=== PATIENT | female | born 1985 | race Caucasian/White ===

== ENCOUNTER → 2019-11-04 11:05 | Outpatient (CLI) | payer OTHER, SELFPAY ==
--- NOTE | ~2019-11-04 | US_ITS ---
EXAMINATION: US OB <=14 wk fetus w TV DATE: 11/04/2019 11:39 INDICATION: Gestational dating TECHNIQUE: Real-time transabdominal and transvaginal obstetric ultrasound. FINDINGS: No prior studies for comparison. The uterus measures 12.4 x 5.8 x 6.8 cm. There is an intrauterine gestational sac, with pole id entified. The crown rump length measures 2.5 cm, which correlates with a estimated gestational age o f 9 weeks 2 days. heart tones are identified measuring 171 BPM. Ovaries are not visualized. IMPRESSION: 1. SL IUP with an EGA of 9 weeks, 2 days (EDC by current ultrasound of 06/06/2020). Reviewed, dictated and finalized at location B. IMPRESSION: 1. SL IUP with an EGA of 9 weeks, 2 days (EDC by current ultrasound of ).
== END ==
PROVIDERS: Visit Provider Obstetrics & Gynecology
DX: Z34.91 Encounter for supervision of normal pregnancy, unspecified, first trimester (principal); Z3A.09 9 weeks gestation of pregnancy
CPT/HCPCS: 76801; 76817

== ENCOUNTER 2020-01-20 10:56 | Outpatient (CLI) | payer OTHER, SELFPAY ==
--- NOTE | ~2020-01-20 | US_ITS ---
EXAMINATION: US OB >= 14 weeks Fetus EXAM DATE: 01/20/2020 12:06 INDICATION: anatomy. 2nd trimester. TECHNIQUE: Pelvic obstetrical transabdominal sonogram was performed by a technologist. There are mu ltiple grayscale and Doppler images available for interpretation. Comparison is made to prior examina tion from 11/04/2019. FINDINGS: There is a single fetus identified in breech presentation with a heart rate of 131 beats pe r minute. The placenta is located in the anterior position. There is no sonographic evidence of retr oplacental hemorrhage identified. The amniotic fluid index is 12.4 centimeters, which is normal. BIOMETRIC DATA: Biparietal diameter (BPD): 4.7cm ----------------> 20 weeks 1 day. Head circumference (HC): 18.2 cm ----------------> 20 weeks 4 days. Abdominal circumference (AC): 16.2 cm ----------> 21 weeks 2 days. Femur length (FL): 3.3 cm --------------------------> 20 weeks 3 days. These measurements are concordant. HC/AC ratio is 1.13 (The 5th -- 95th percentile range is 1.07-1.25. Estimated weight is 380 g +/- 57 g. This is the 76th percentile when the currently reported cl inical gestation age 20 weeks 2 days, clinical estimated date of delivery (CHRISTA-OPE) 06/06 is used. Fet al estimated gestational age based on measurements from this exam is 20 weeks 4 days, with an estimat ed date of delivery (CHRISTA-AUA) 06/04. ANATOMIC SURVEY: The following anatomy is identified and is sonographically normal in appearance: Cerebral ventricles Cerebellum Cisterna magna Nuchal fold CTL-spine Four-chamber heart Diaphragm Stomach Kidneys Bladder Three-vessel cord Cord insertion IMPRESSION: 1. Single fetus in breech presentation with heart rate 131 beats per minute. 2. Estimated weight of 380 grams, 76 percentile using the currently reported clinical gestatio n age of 20 weeks 2 days, CHRISTA(OPE) 06/06. 3. Normal DON and anatomy survey. Reviewed, dictated and finalized at location A. COACH IMPRESSION: 1. Single fetus in breech presentation with heart rate 131 beats per minute. 2. Estimated weight of 380 grams, 76 percentile using the currently repo rted clinical gestation age of 20 weeks 2 days, CHRISTA(OPE) 06/06. 3. Normal DON and anatomy survey.
== END 2020-01-20 10:57 | disposition home or self-care (01) ==
PROVIDERS: Visit Provider Obstetrics & Gynecology
DX: Z34.92 Encounter for supervision of normal pregnancy, unspecified, second trimester (principal); Z3A.20 20 weeks gestation of pregnancy
CPT/HCPCS: 76805

== ENCOUNTER 2020-06-05 07:55 | Observation (INO) | payer OTHER, SELFPAY ==
--- NOTE | 2020-06-05 07:55 | OBADM ---
This patient, Micaela Mcneil, admitted to the OB room Labor/Delivery/Recovery 106 for observation. Patient/family oriented to hospital policies and general routines including ID bracelet, bed and alarms, visiting hours, pain management, procedures, bathroom and other care routines, personal items, smoking policy, room service/diet, and visiting hours. Patient/Family are encouraged to report perceived risks to care and to ask questions if they do not understand what they are told or what they should do.
[2020-06-05 08:30] VITALS: TEMP 36.3
[2020-06-05 08:45] VITALS: BP 117/68; PULSE 78
--- NOTE | 2020-06-11 09:58 | PM.OBTRLD ---
OB - Triage/Final Diagnosis Visit Information Comments/Additional reasons for admission: I have assessed the risk for this patient, Micaela Mcneil, and determined that she would benefit from observation care. Final Diagnosis (1) False labor: Code(s): O47.9 - False labor, unspecified Status: Acute
== END 2020-06-05 09:00 | disposition home or self-care (01) ==
PROVIDERS: Admitting Provider Obstetrics & Gynecology; PCP Family Medicine; Visit Provider Obstetrics & Gynecology
DX: O47.1 False labor at or after 37 completed weeks of gestation (principal); Z3A.39 39 weeks gestation of pregnancy
CPT/HCPCS: G0378; G0379

== ENCOUNTER 2020-06-08 05:02 | Inpatient (IN) | payer OTHER, SELFPAY ==
[2020-06-08] VITALS (67 sets, daily range): BP systolic 55–124; BP diastolic 40–81; PULSE 59–174; RESP 15–16; TEMP 36.3–36.8; O2SAT 98–100; BMI 32.3
[2020-06-08 05:42] LABS: Basophils Percent Auto 0.2 % (0.2-1.2); Eosinophils Absolute Auto 0.1 K/mm3 (0-0.3); Hematocrit 40.1 % (37.0-47.0); Hemoglobin 13.5 g/dL (12.0-15.0); Immature Granulocyte Absolute 0.05 K/mm3 (0.00-0.031); Immature Granulocyte Percent A 0.5 % (0-0.5); Lymphocytes Absolute Auto 2.32 K/mm3 (0.9-3.2); Lymphocytes Percent Auto 24.5 % (18.3-44.2); Mean Corpuscular HGB Conc 33.7 g/dl (32-36); Mean Corpuscular Hemoglobin 32.6 pg (26-34); Mean Corpuscular Volume 96.9 fl (80-100); Mean Platelet Volume 11.1 fl (7.4-10.4); Monocytes Absolute Auto 0.5 K/mm3 (0.1-0.6); Neutrophils Absolute Auto 6.5 K/mm3 (1.3-6.7); Neutrophils Percent Auto 68.8 % (45.5-73.1); Platelet Count Result 228 k/mm3 (150-375); Red Blood Count 4.14 M/mm3 (4.2-5.4); Red Cell Distribution Width 12.5 % (11.5-14.5); White Blood Count 9.5 K/mm3 (4.5-10.0)
--- NOTE | 2020-06-08 05:45 | LDADM ---
This patient, Micaela Mcneil, was admitted to Labor/Delivery/Recovery 102 on 06/08/20 at 05:02. Plans for labor, pain management and were discussed with patient. Patient/family oriented to hospital policies and general routines including ID bracelet, bed and alarms, visiting hours, pain management, procedures, bathroom and other care routines, personal items, smoking policy, room service/diet and guest tray routines, infant security routines, and visiting hours. Patient/Family are encouraged to report perceived risks to care and to ask questions if they do not understand what they are told or what they should do. See OBIX for further documentation.
--- NOTE | 2020-06-08 05:56 | WPDANESEPP ---
Anes - Eval Pre Procedure Procedure: labor epidural Date/Time: 06/08/20 05:56 Surgeon: yobani Pre Op Diagnosis: IOL Patient Data Age: 35 Gender: F Height: Weight: Last Vital Signs Pulse 97 06/08/20 05:45 BP 103/54 L 06/08/20 05:45 Allergies Allergy/AdvReac Type Severity Reaction Status Date / Time No Known Allergies Allergy Verified 06/04/20 08:44 Home Medications Medication Instructions Recorded Confirmed Type cetirizine 10 mg capsule 10 mg PO DAILY 10/21/19 05/07/20 History docosahexaenoic acid 200 mg capsule 200 mg PO DAILY 10/21/19 05/07/20 History Laboratory Tests 06/08/20 06/08/20 05:28 05:28 WBC 9.5 K/mm3 K/mm3 (4.5-10.0) RBC 4.14 M/mm3 L M/mm3 (4.2-5.4) Hgb 13.5 g/dL g/dL (12.0-15.0) Hct 40.1 % % (37.0-47.0) MCV 96.9 fl fl (80-100) MCH 32.6 pg pg (26-34) MCHC 33.7 g/dl g/dl (32-36) RDW 12.5 % % (11.5-14.5) Plt Count 228 k/mm3 k/mm3 (150-375) MPV 11.1 fl H fl (7.4-10.4) Immature Gran % (Auto) 0.5 % % (0-0.5) Neut % (Auto) 68.8 % % (45.5-73.1) Lymph % (Auto) 24.5 % % (18.3-44.2) [place] % (Auto) 5.0 % % (2.6-8.5) Eos % (Auto) 1.0 % % (0-4.4) Baso % (Auto) 0.2 % % (0.2-1.2) Lymph # (Auto) 2.32 K/mm3 K/mm3 (0.9-3.2) [place] # (Auto) 0.5 K/mm3 K/mm3 (0.1-0.6) Eos # (Auto) 0.1 K/mm3 K/mm3 (0-0.3) Baso # (Auto) 0.0 K/mm3 K/mm3 (0.0-0.1) Abs Immat Gran (auto) 0.05 K/mm3 H K/mm3 (0.00-0.031) Absolute Neuts (auto) 6.5 K/mm3 K/mm3 (1.3-6.7) Absolute Nucleated RBC 0.0 K/mm3 K/mm3 (0.0-0.012) Nucleated RBC % 0.0 % % (0.0-0.2) RPR Pending Patient hx anesthesia problems: none Family hx anesthesia problems: none PMFSH Past Medical History Medical History Vaginal delivery 10/21/18 Full term male 7lbs 12oz Family History Family History Sibling Family history of diabetes mellitus in first degree relative Mother Family history of diabetes mellitus in first degree relative Hypertension Hyperlipidemia Father Hypertension Social History Social History Smoking status: Never smoker Alcohol intake: never Substance use: never Gender identity (if verbalized by the patient): Female Spiritual care concerns: No Exam Day of Procedure 06/08/20 05:56
[2020-06-08] MEDS: LACTATED RINGERS 1,000 ML 125 ML IV CONT ×2 (06:15→09:50)
[2020-06-08] MEDS: OXYTOCIN 30 UNITS/NS 500 ML 30 UNITS/500 ML BAG IV CONT (06:15)
--- NOTE | 2020-06-08 08:11 | WPDOBADMIT ---
Obstetrics - Admit Note Admission Note: record reviewed. No pertinent additions to the history and/or any subsequent changes in the physical findings that are not consistent with the expected course of the were found. Additions to the history and/or subsequent changes in the physical findings follow. at 40+2 for induction of labor. Cervix 4/80/-1/soft/anterior. AROM with clear fluid. GBS negative. Continue pitocin. Anticipate ..
[2020-06-08] MEDS: ONDANSETRON INJ 4 MG/2 ML VIAL IV PUSH (09:50)
--- NOTE | 2020-06-08 12:12 | PM.OBPRVD ---
OB - Delivery Note Procedure Delivery date: 06/08/20 Procedure: events: Labor Induction Intrapartal events: None Induction method: per pitocin protocol Delivery augmentation: rupture of membranes Delivery monitor: external FHT and external uterine Route of delivery: Laceration Description: Perineal - 2nd Degree Delivery repair: vicryl (2-0) Specimen: No Quantitative Blood Loss (ml): 112 Anesthesia type: Epidural Disposition: floor Baby Date of : 06/08/20 Time of : 11:55 Weeks of gestation at delivery: 40 Infant gender: Female Weight (pounds): 7 Weight (ounces): 4 presentation: vertex position: Right Occiput Anterior Placenta delivery description: Spontaneous cord vessel description: 3 Vessels, True Knot, Loose and Clamped/Cut score one minute: 9 score five minutes: 9
[2020-06-08] MEDS: OXYTOCIN 30 UNITS/NS 500 ML 30 UNITS/500 ML BAG 125 UNITS IV CONT (12:46)
[2020-06-08 14:14] LABS: Rapid Plasma Reagin Non-Reactive (NonReactive)
[2020-06-08] MEDS: IBUPROFEN 600 MG TABLET PO ×2 (14:24→20:17)
--- NOTE | 2020-06-08 15:35 | PC.NURSE ---
1525-Patient transferred to post room #282 via wheelchair. Support person present. Oriented to unit, room, information board, rooming in, admission packet and security measures. Patient verbalizes understanding.
--- NOTE | 2020-06-08 15:56 | PC.NURSE ---
Consult with pt., mother reported eagerly latched and nursed for 20 minutes first feeding. Mother reports she was pleased, first child mother pumped for 2 months struggling with milk supply. Mother did not attempt first to breast due to inverted nipple. Nipples appear to be flat and will roll out nicely. Mother does not want the stress with supply as first child. Mother wishes to supplement if does not feed. Reviewed all options to assist with latching. Mother provided with Latch Assist, nipple shield and pump set up at bedside. attempted to breast, infant is gaging and spitting up clear mucus. sleepy and made no attempt to latch. Advised to skin to skin and attempt again in 15-30 minutes, calling out for assist.
[2020-06-09 04:40] VITALS: BP 100/51; PULSE 67; RESP 14; TEMP 36.7; O2SAT 99
[2020-06-09] MEDS: IBUPROFEN 600 MG TABLET PO (04:45)
[2020-06-09 05:31] LABS: Hemoglobin 11.8 g/dL (12.0-15.0)
--- NOTE | 2020-06-09 07:31 | WPDANLDPN2 ---
Anes-Prog Note L&D Date/Time: 06/09/20 07:31 Comfortable throughout: labor and delivery Neuraxial method: epidural Epidural/Spinal procedure site: clean & non-tender Neuro status: Neuro function grossly intact. Cardiovascular status: normal Respiratory status: normal Airway patency: baseline Mental status: baseline Post-Op hydration status: normal Vital Signs: Last Vital Signs Temp 36.7 C 06/09/20 04:40 Pulse 67 06/09/20 04:40 Resp 14 06/09/20 04:40 BP 100/51 L 06/09/20 04:40 Pulse Ox 99 06/09/20 04:40 Pain score (VAS): 2 I/O: Intake & Output 06/08/20 06/08/20 06/09/20 15:59 23:59 07:59 Intake Total 2500 Output Total 212 Balance 2288 Post-procedural complaints: none Patient feedback: Patient satisfied with anesthetic care.
--- NOTE | 2020-06-09 07:58 | PM.OBPNVD ---
OB - PN: Subj Subjective Date/time seen: 06/09/20 07:58 Patient comments: no complaints, pain well controlled and other (Lochia similar to menses) [place] baby status: doing well OB - PN: Obj Data Labs CBC & Chem 7: 06/09/20 04:52 Labs: Laboratory Results - last 24 hr 06/08/20 06/09/20 05:28 04:52 Hgb 11.8 L Hct 36.0 L RPR Non-reactive OB - PN A/P Plan day: 1 (s/p vaginal delivery, doing well) Plan: routine care Time Spent With Patient Time: Total time spent is greater than 50% in coordination of care (as documented) at patient's floor/unit and/or counseling patient: Exam Const: General: no acute distress GI: Inspection: other (Fundus firm and nontender at umbilicus) GI Palp: Yes Soft to palpation and No Tenderness to palpation present (GI) Extrem: General: no edema
--- NOTE | 2020-06-09 07:59 | PM.OBDSVD ---
DS: Admitting Diagnosis Admitting Diagnosis Admitting Diagnosis: Full term DS: Discharge Diagnosis Discharge Diagnosis (1) Vaginal delivery: Code(s): O80 - Encounter for full-term uncomplicated delivery Status: Acute OB - DS: Summary OB Procedures : None OB Procedures Intrapartum: Spontaneous Vag Delivery OB Procedures: : None Peripartum Data Infant Delivery Method: Natural Vaginal Laceration Description: Perineal - 2nd Degree complications: none Status at Discharge Functional status at discharge: independent ambulation Overall status at discharge: patient is progressing back to baseline Time Spent with Patient Time attestation: Total time spent providing and/or coordinating discharge services: Time spent: Less than 30 minutes DS: Data Data Completed and Pending Labs on day of discharge: Labs from last 24 hours 06/09/20 06/08/20 04:52 05:28 Hgb 11.8 L Hct 36.0 L RPR Non-reactive Discharge Plan Discharge Attending physician on discharge: Herlinda Van Discharging Clinician: Herlinda Van Anticipated Discharge Date/Time: 06/10/20 11:00 Patient Disposition: Home, Self-Care Activity: may shower and pelvic rest Diet: regular Patient Instructions: Antibiotic Form Stand Alone Forms: General Discharge Information Follow-up/Referrals: Herlinda Van MD [Physician] - 4 Weeks Discharge Medications: New ibuprofen 600 mg Tablet 600 mg PO Q6H PRN (Reason: Cramping) Qty: 60 RF: 0 Continued DHA 200 mg capsule 200 mg PO DAILY RF: 0 cetirizine 10 mg capsule 10 mg PO DAILY RF: 0 Date of admission: 06/08/20 05:02 Primary Care Provider: Luis Gu Admitting Provider: Herlinda Van Attending physician on admission: Herlinda Van Condition: Stable
[2020-06-09 08:00] VITALS: BP 100/60; PULSE 59; RESP 18; TEMP 36.2
[2020-06-09 19:10] VITALS: BP 107/64; PULSE 65; RESP 14; TEMP 36.4; O2SAT 100
--- NOTE | 2020-06-10 08:51 | PM.OBPNVD ---
OB - PN: Subj Subjective Date/time seen: 06/10/20 08:51 Patient comments: no complaints, pain well controlled and other (Lochia similar to menses) [place] baby status: doing well OB - PN: Obj Data Labs CBC & Chem 7: 06/09/20 04:52 OB - PN A/P Plan day: 2 (s/p vaginal delivery, doing well) Plan: routine care, discharge home and other (Follow up in office in 4 weeks) Time Spent With Patient Time: Total time spent is greater than 50% in coordination of care (as documented) at patient's floor/unit and/or counseling patient: Exam Const: General: no acute distress GI: Inspection: other (Fundus firm and nontender below umbilicus) GI Palp: Yes Soft to palpation and No Tenderness to palpation present (GI) Extrem: General: no edema
--- NOTE | 2020-06-10 09:00 | PC.NURSE ---
Patient instructed on viewing the discharge video Mother & Baby Care, The First Two Weeks . Patient was given the opportunity and encouraged to ask questions. Patient verbalized understanding of information shared and has been given the mother/baby guide for home reference.
[2020-06-10 09:30] VITALS: BP 110/72; PULSE 74; RESP 16; TEMP 36.7
[2020-06-11 08:43] VITALS: BP 115/63; PULSE 66; RESP 20; TEMP 36.7; O2SAT 100
== END 2020-06-10 11:41 | disposition home or self-care (01) | DRG 807 ==
LOC: ANHLDR 05:05 → ANHOB2 15:30
PROVIDERS: Admitting Provider Obstetrics & Gynecology; PCP Family Medicine; Visit Provider Obstetrics & Gynecology
DX: O69.2XX0 Labor and delivery complicated by other cord entanglement, with compression, not applicable or unspecified (principal); Z37.0 Single live birth; Z3A.40 40 weeks gestation of pregnancy; O70.1 Second degree perineal laceration during delivery
CPT/HCPCS: 36415; 85014; 85018; 85025; 86592; 86850; 86900; 86901; A9270; G0378; G0379; J2405; J2590; J7120

== ENCOUNTER 2020-08-03 21:07 | Observation (INO) | payer OTHER, SELFPAY ==
--- NOTE | ~2020-08-03 | CT_ITS ---
EXAMINATION: CT abdomen pelvis w con DATE: 08/03/2020 23:09 INDICATION: Right upper quadrant abdominal pain TECHNIQUE: Computed tomography (CT) of the abdomen and pelvis was performed with 100 cc Omnipaque 350 intravenous contrast. Automated exposure control and iterative reconstruction technique were employe d. Exam dose: 633.30 mGy-cm total exam DLP. COMPARISON: None. FINDINGS: There is minimal dependent atelectasis of the lower lobes. No infiltrate or consolidation i s noted in the included lower lung zones. Heart size is normal. No pericardial or pleural effusion. The gallbladder is present. No gallbladder wall thickening or pericholecystic fluid or fat stranding is evident. No bile duct or pancreatic duct dilatation. 6 mm hepatic cyst. The liver, spleen, pancreas, and adrenal glands and kidneys are otherwise unremark able. No urinary tract calculus or hydroureteronephrosis is evident. The urinary bladder appears unremarkable. The uterus measures approximately 8.8 cm height, up to 4.5 cm AP dimension, with some fluid in the en dometrial cavity. There is some focal soft tissue infiltration of the fat density adjacent to the cecum and apparent ap pendix with suggestion of appendiceal dilatation (10 mm), wall thickening and irregularity. Appendici tis is suggested. Clinical correlation is advised. No bowel obstruction or intraperitoneal free air is evident. Included skeletal structures are unremarkable. IMPRESSION: Suggestion of appendicitis with inflammation of the periappendiceal fat. Clinical correl ation is advised. [address] Mart telephoned the report on 08/03/2020 at 2334 hours to emergency room physician Dr. Gipson. Reviewed, dictated and finalized at [facility]. Reviewed, dictated and finalized at location [facility]. IMPRESSION: Suggestion of appendicitis with inflammation of the periappendicea l fat. Clinical correlation is advised. [address] Mart telephoned the report on 08/03/2020 at 2334 hours to emergency room robert Gipson.
[2020-08-03 21:30] VITALS: BP 113/84; PULSE 80; RESP 18; TEMP 35.9; O2SAT 100
[2020-08-03] MEDS: MORPHINE SULFATE (*CRX) 4 MG/ML INJ IV PUSH (21:56)
[2020-08-03] MEDS: ONDANSETRON INJ 4 MG/2 ML VIAL IV PUSH (21:56)
[2020-08-03 22:04] LABS: Basophils Absolute Auto 0.1 K/mm3 (0.0-0.1); Basophils Percent Auto 0.4 % (0.2-1.2); Eosinophils Absolute Auto 0.1 K/mm3 (0-0.3); Eosinophils Percent Auto 0.7 % (0-4.4); Hematocrit 40.8 % (37.0-47.0); Hemoglobin 13.5 g/dL (12.0-15.0); Immature Granulocyte Absolute 0.04 K/mm3 (0.00-0.031); Immature Granulocyte Percent A 0.3 % (0-0.5); Lymphocytes Absolute Auto 2.52 K/mm3 (0.9-3.2); Lymphocytes Percent Auto 20.6 % (18.3-44.2); Mean Corpuscular HGB Conc 33.1 g/dl (32-36); Mean Corpuscular Hemoglobin 31.8 pg (26-34); Mean Platelet Volume 10.2 fl (7.4-10.4); Monocytes Absolute Auto 0.7 K/mm3 (0.1-0.6); Monocytes Percent Auto 5.8 % (2.6-8.5); Neutrophils Absolute Auto 8.8 K/mm3 (1.3-6.7); Neutrophils Percent Auto 72.2 % (45.5-73.1); Platelet Count Result 292 k/mm3 (150-375); Red Blood Count 4.25 M/mm3 (4.2-5.4); Red Cell Distribution Width 11.7 % (11.5-14.5); White Blood Count 12.2 K/mm3 (4.5-10.0)
[2020-08-03 22:08] LABS: Add Urine Microscopic? YES; Appearance Urine Cloudy (Clear); Bacteria Urine Trace /hpf; Bilirubin Urine Negative (Negative); Blood Urine Negative (Negative); Color Urine Yellow (Yellow); Glucose Urine UA Negative (Negative); Ketones Urine Negative (Negative); Leukocyte Esterase Ur Negative LEU/UL (Negative); Mucus Urine Heavy /lpf; Nitrate Urine Negative (Negative); Protein Urine 1+ mg/dL (Negative); RBC Urine 0-2 /hpf (0-2); Specific Grav Ur 1.025 (1.001-1.035); Squamous Epithelial Cell Urine Many /hpf (Few); WBC Urine 0-3 /hpf
[2020-08-03 22:12] LABS: Alanine Aminotransferase 41 U/L (4-35); Albumin Level 4.6 g/dL (3.5-5.1); Alkaline Phosphatase 118 U/L (38-126); Anion Gap 11 mmol/L (8-16); Aspartate Amino Transferase 71 U/L (14-36); Bilirubin,Total 1.1 mg/dL (0.2-1.3); Blood Urea Nitrogen 10 mg/dL (7-17); Calcium 9.3 mg/dL (8.4-10.2); Carbon Dioxide 28 mmol/L (22-30); Chloride 102 mmol/L (98-107); Estimated Glomerular Filt Rate > 60; Glucose 95 mg/dL (65-105); Lipase 219 U/L (23-300); Potassium 3.5 mmol/L (3.4-5.0); Sodium 141 mmol/L (137-145)
--- NOTE | 2020-08-03 22:24 | ED.ABDPAIN ---
HPI - Abdominal Pain General Chief Complaint: Abdominal Pain Stated Complaint: Poss gallbladder attack Time Seen by Provider: 08/03/20 21:30 History of Present Illness HPI narrative: Patient is a 35-year-old female who presents ER with epigastric and right upper quadrant pain. Sudden onset this evening. Has had similar episodes over the last few months. Radiates to her back. Associate with some nausea but no vomiting. Denies fevers or chills or sweats. No known history of cholelithiasis. Occurs at times with eating but also independent of eating. She does report some right lower quadrant pain notes been there intermittently over the last day as well. Related Data Home Medications Medication Instructions Recorded Confirmed loratadine 10 mg tablet 10 mg PO HS 07/06/20 08/04/20 Allergies Allergy/AdvReac Type Severity Reaction Status Date / Time No Known Allergies Allergy Verified 08/03/20 21:08 Review of Systems Review of Systems: All systems reviewed & are unremarkable except as noted in HPI and below Constitutional: Constitutional: Denies chills, Denies fever(s) and Denies weakness ENT: Denies nasal congestion and Denies sore throat Gastrointestinal: Gastrointestinal: Reports abdominal pain, Denies diarrhea, Reports nausea and Denies vomiting PMFSH Past Medical History Medical History (Updated 08/04/20 @ 05:20 by Fahad Gipson MD) Vaginal delivery 10/21/18 Full term male 7lbs 12oz Surgical History Surgical History (Updated 08/03/20 @ 22:27 by Fahad Gipson MD) No pertinent past surgical history Family History Family History Sibling Family history of diabetes mellitus in first degree relative Mother Family history of diabetes mellitus in first degree relative Hypertension Hyperlipidemia Father Hypertension Social History Social History Smoking status: Never smoker Alcohol intake: unknown Substance use: unknown Substance use type: does not use Gender identity (if verbalized by the patient): Female Spiritual care concerns: No Exam Narrative: Exam Narrative: GENERAL: Well-appearing, well-nourished, and in no acute distress. HEAD: Normocephalic, atraumatic. ENT: Mucous membranes moist. CHEST: Clear to auscultation. No respiratory distress. HEART: Regular rate and rhythm. Normal peripheral pulses. ABDOMEN: Soft, tender palpation right upper quadrant and epigastrium with mild guarding, mild discomfort right lower quadrant without guarding, nondistended. EXTREMITIES: Normal range of motion. No edema. SKIN: Warm, dry, no rash. NEURO: Alert and oriented x3. PSYCH: Normal mood and affect. Course Course Emergency Course: Admit to general surgery. N.p.o. Zosyn ordered. Vital Signs Vital signs: Vital Signs Temperature 96.7 F L 08/03/20 21:30 Pulse Rate 80 08/03/20 21:30 Respiratory Rate 18 08/03/20 21:30 Blood Pressure 113/84 08/03/20 21:30 Pulse Oximetry 100 08/03/20 21:30 Temperature 96.8 F L 08/04/20 05:14 Pulse Rate 56 L 08/04/20 05:14 Respiratory Rate 16 08/04/20 05:14 Blood Pressure 105/52 L 08/04/20 05:14 Pulse Oximetry 100 08/04/20 05:14 MDM - Abdominal Pain Lab Data Result diagrams: 08/03/20 21:55 08/03/20 21:55 Labs: Lab Results 08/03/20 08/03/20 08/03/20 Range/Units 21:55 21:55 21:55 WBC 12.2 H (4.5-10.0) K/mm3 RBC 4.25 (4.2-5.4) M/mm3 Hgb 13.5 (12.0-15.0) g/dL Hct 40.8 (37.0-47.0) % MCV 96.0 (80-100) fl MCH 31.8 (26-34) pg MCHC 33.1 (32-36) g/dl RDW 11.7 (11.5-14.5) % Plt Count 292 (150-375) k/mm3 MPV 10.2 (7.4-10.4) fl Immature Gran % (Auto) 0.3 (0-0.5) % Neut % (Auto) 72.2 (45.5-73.1) % Lymph % (Auto) 20.6 (18.3-44.2) % [place] % (Auto) 5.8 (2.6-8.5) % Eos % (Auto) 0.7 (0-4.4) % Baso %
[2020-08-04] VITALS (13 sets, daily range): BP systolic 97–139; BP diastolic 52–74; PULSE 56–85; RESP 12–18; TEMP 35.9–37; O2SAT 98–100; BMI 29.5
--- NOTE | 2020-08-04 01:00 | ADMGEN ---
This patient, Micaela Mcneil, was admitted to Medical Room [facility]- at 0045. Patient/family oriented to hospital policies and general routines including ID bracelet, bed and alarms, visiting hours, pain management, procedures, bathroom and other care routines, personal items, smoking policy, room service/diet, and visiting hours. Information on how to activate the Rapid Response Team has been discussed. Patient/Family are encouraged to report perceived risks to care and to ask questions if they do not understand what they are told or what they should do.
[2020-08-04] MEDS: SODIUM CHLORIDE 0.9% IV 1,000 ML 125 ML IV CONT (01:28)
[2020-08-04] MEDS: MORPHINE SULFATE (*CRX) 4 MG/ML INJ IV PUSH (03:41)
[2020-08-04] MEDS: ONDANSETRON INJ 4 MG/2 ML VIAL IV PUSH ×4 (03:42→14:35)
--- NOTE | 2020-08-04 09:57 | PM.IMHP ---
H&P: HPI History of Present Illness Date/Time: 08/04/20 09:57 Pt is a 35 y/o F presenting to ED c 1 d h/o R sided abd pain. Pt reports similar episodes over last few mos but this episode was most severe and longer lasting. Pt reports decreased appetite, nausea. Pt denies fevers, chills. Pt reports pain has now localized more to RLQ. Chief Complaint: acute appendicitis Review of Systems Constitutional: Constitutional: Denies anorexia, Denies body ache(s), Denies chills, Reports fatigue, Denies fever(s), Reports lethargy, Denies malaise, Reports poor appetite and Reports weakness Eyes: Eyes: Reports no additional eye complaints ENT: Reports system reviewed and no additional complaints, except as documented Cardiovascular: Cardiovascular: Reports no additional cardiovascular complaints Respiratory: Respiratory: Reports no additional respiratory complaints Gastrointestinal: Gastrointestinal: Reports as per HPI, Reports abdominal pain, Reports bloating, Denies constipation, Denies diarrhea, Denies loose stools, Reports nausea and Denies vomiting Genitourinary: Genitourinary: Reports no additional female genitourinary complaints Musculoskeletal: Musculoskeletal: Reports no additional musculoskeletal complaints Integumentary/Breasts: Skin/Breast: Reports system reviewed and no additional complaints, except as docu Neurologic: Reports system reviewed and no additional complaints, except as documented Psychiatric: Psychiatric: Reports no additional psychiatric complaints Endocrine: Endocrine: Reports no additional endocrine complaints Hematologic/Lymphatic: Hematologic/Lymphatic: Reports no additional hematologic/lymphatic complaints Allergic/Immunologic: Allergic/Immunologic: Reports no additional allergic/immunologic complaints [facility] Past Medical History Medical History Vaginal delivery 10/21/18 Full term male 7lbs 12oz Surgical History Surgical History No pertinent past surgical history Family History Family History Sibling Family history of diabetes mellitus in first degree relative Mother Family history of diabetes mellitus in first degree relative Hypertension Hyperlipidemia Father Hypertension Social History Social History Smoking status: Never smoker Alcohol intake: unknown Substance use: unknown Substance use type: does not use Gender identity (if verbalized by the patient): Female Spiritual care concerns: No Meds Home Medications and Allergies Home Medications Medication Instructions Recorded Confirmed Type loratadine 10 mg tablet 10 mg PO HS 07/06/20 08/04/20 History Allergies Allergy/AdvReac Type Severity Reaction Status Date / Time No Known Allergies Allergy Verified 08/03/20 21:08 Vital Signs Vital Signs - 24 hr 08/03/20 21:30 08/04/20 00:01 08/04/20 01:20 Temperature 35.9 C L 37.0 C Pulse Rate 80 67 66 Respiratory Rate 18 14 16 Blood Pressure 113/84 139/72 108/74 Pulse Oximetry 100 100 100 08/04/20 05:14 Temperature 36.0 C L Pulse Rate 56 L Respiratory Rate 16 Blood Pressure 105/52 L Pulse Oximetry 100 Exam Const: General: cooperative, comfortable and no acute distress Nutritional Appearance: average body habitus Orientation/consciousness: patient oriented x3 Limitations: no limitations HENMT: Head: normal to inspection, normocephalic and atraumatic Ears: hearing grossly normal bilaterally General nose exam: Normal external nose present Face and sinus: normal facial exam Mouth: Yes Normal oral and palatal mucosa present and Yes moist mucous membranes Eyes: General: appearance normal, both eyes and all related structures Pupils: Equal, round and reactive pupils present EOM: EOMs intact bilaterally Neck: Neck: normal visu
--- NOTE | 2020-08-04 10:00 | PC.NURSE ---
Patient to surgery per bed. IV saline locked. Report given to JANESSA Manuel.
--- NOTE | 2020-08-04 10:02 | WPDHPUPDATE1 ---
History and Physical Update Update Date/Time: 08/04/20 10:02 History and Physical has been reviewed, including an updated exam of the patient. There are NO changes in the patient's condition. Risks, benefits, and alternatives have been discussed and questions answered. Patient agrees to proceed with procedure.
--- NOTE | 2020-08-04 10:11 | WPDANESEPPF ---
Anes - Initial Pre Proc Eval Procedure: Operation Date: 08/04/20 10:30 Proposed Procedures p Laparoscopic Appendectomy - Marlin Carreno MD Date/Time: 08/04/20 10:11 Surgeon: Marlin Carreno MD Pre Op Diagnosis: appendicitis Patient Data Age: 35 Gender: F Height: 1.73 m Weight: 88 kg Last Vital Signs Temp 36.0 C L 08/04/20 05:14 Pulse 56 L 08/04/20 05:14 Resp 16 08/04/20 05:14 BP 105/52 L 08/04/20 05:14 Pulse Ox 100 08/04/20 05:14 Allergies Allergy/AdvReac Type Severity Reaction Status Date / Time No Known Allergies Allergy Verified 08/03/20 21:08 Home Medications Medication Instructions Recorded Confirmed Type loratadine 10 mg tablet 10 mg PO HS 07/06/20 08/04/20 History Laboratory Tests 08/03/20 08/03/20 08/03/20 21:55 21:55 21:55 WBC 12.2 K/mm3 H K/mm3 (4.5-10.0) RBC 4.25 M/mm3 M/mm3 (4.2-5.4) Hgb 13.5 g/dL g/dL (12.0-15.0) Hct 40.8 % % (37.0-47.0) MCV 96.0 fl fl (80-100) MCH 31.8 pg pg (26-34) MCHC 33.1 g/dl g/dl (32-36) RDW 11.7 % % (11.5-14.5) Plt Count 292 k/mm3 k/mm3 (150-375) MPV 10.2 fl fl (7.4-10.4) Immature Gran % (Auto) 0.3 % % (0-0.5) Neut % (Auto) 72.2 % % (45.5-73.1) Lymph % (Auto) 20.6 % % (18.3-44.2) [place] % (Auto) 5.8 % % (2.6-8.5) Eos % (Auto) 0.7 % % (0-4.4) Baso % (Auto) 0.4 % % (0.2-1.2) Lymph # (Auto) 2.52 K/mm3 K/mm3 (0.9-3.2) [place] # (Auto) 0.7 K/mm3 H K/mm3 (0.1-0.6) Eos # (Auto) 0.1 K/mm3 K/mm3 (0-0.3) Baso # (Auto) 0.1 K/mm3 K/mm3 (0.0-0.1) Abs Immat Gran (auto) 0.04 K/mm3 H K/mm3 (0.00-0.031) Absolute Neuts (auto) 8.8 K/mm3 H K/mm3 (1.3-6.7) Absolute Nucleated RBC 0.0 K/mm3 K/mm3 (0.0-0.012) Nucleated RBC % 0.0 % % (0.0-0.2) Sodium 141 mmol/L mmol/L (137-145) Potassium 3.5 mmol/L mmol/L (3.4-5.0) Chloride 102 mmol/L mmol/L (98-107) Carbon Dioxide 28 mmol/L mmol/L (22-30) Anion Gap 11 mmol/L mmol/L (8-16) BUN 10 mg/dL mg/dL (7-17) Creatinine 1.00 mg/dL mg/dL (0.7-1.0) Estim Creat Clear Calc Not Reportable Estimated GFR > 60 (59 - ) Glucose 95 mg/dL mg/dL (65-105) Calcium 9.3 mg/dL mg/dL (8.4-10.2) Total Bilirubin 1.1 mg/dL mg/dL (0.2-1.3) AST 71 U/L H U/L (14-36) ALT 41 U/L H U/L (4-35) Alkaline Phosphatase 118 U/L U/L (38-126) Total Protein 8.0 g/dL g/dL (6.3-8.2) Albumin 4.6 g/dL g/dL (3.5-5.1) Lipase 219 U/L U/L (23-300) Urine Color Yellow (Yellow) Urine Appearance Cloudy H (Clear) Urine pH 6.0 (5.0-9.0) Ur Specific [place] 1.025 (1.001-1.035) Urine Protein 1+ mg/dL H mg/dL (Negative) Urine Glucose (UA) Negative mg/dL mg/dL (Negative) Urine Ketones Negative mg/dL mg/dL (Negative) Ur Blood (Man) Negative (Negative) Urine Nitrate Negative (Negative) Urine Bilirubin Negative (Negative) Urine Urobilinogen 2.0 mg/dL H mg/dL (<2.0) Leukocyte Esterase Rfl Negative MERCEDEZ/UL MERCEDEZ/UL (Negative) Urine RBC 0-2 /hpf /hpf (0-2) Urine WBC 0-3 /hpf /hpf Ur Squamous Epith Cells Many /hpf H /hpf (Few) Urine Bacteria Trace /hpf /hpf Urine Mucus Heavy /lpf H /lpf Patient hx anesthesia problems: none Family hx anesthesia problems: none PMFSH Past Medical History Medical History (Updated 08/04/20 @ 10:12 by Chalo Martin DO) Seasonal allergies Vaginal delivery 10/21/18 Full term male 7lbs 12oz Surgical History Surgical History (Reviewed 08/04/20 @ 10:
[2020-08-04] MEDS: SCOPOLAMINE 1.5 MG PATCH TRANSDERM (10:19)
[2020-08-04] MEDS: LACTATED RINGERS 1,000 ML 30 ML IV CONT ×2 (10:22→12:00)
[2020-08-04] MEDS: KETOROLAC 15 MG/ML VIAL (*BKC) IV PUSH (10:50)
[2020-08-04] MEDS: BUPIVACAINE/EPINEPHRINE 0.5% 10 ML VIAL 30 ML INFILTRATE (11:01)
--- NOTE | 2020-08-04 11:17 | W.PM.PROC2 ---
Procedure Note - Detailed Date of Procedure 08/04/20 Pre-op Diagnosis appendicitis Post-op Diagnosis same Procedure Performed laparoscopic appendectomy Surgeon Marlin Carreno MD Anesthesia general Findings acute appendicitis no evidence of perforation Description of Procedure The patient was taken to the operating room and placed in the supine position. After adequate induction of general anesthesia, the patient was prepped and draped in the normal sterile fashion. A time-out was then done to verify the patient's identity, as well as the procedure being performed. I began by making a 5 mm incision in the infraumbilical region, through this a Veress needle was placed in the peritoneal cavity. CO2 gas was then insufflated and after adequate pneumoperitoneum was achieved the Veress needle was removed. Then placed a 5 mm Optiview trocar under direct visualization into the peritoneal cavity. I then insufflated through this trocar site and the endoscope was placed into the trocar. Under direct visualization, placed 2 further 5 mm suprapubic port as well as an additional 12 mm port in the left lower abdomen. At this point identified the cecum, I retracted the cecum both medially and superiorly allowing me to expose the appendix. The appendix was noted to be moderately dilated and inflamed. I then was able to locate the base of the appendix with the cecum. I created a window with the [place] dissector between the appendix itself and the mesoappendix. I then transected the mesoappendix with a white vascular staple load. The Endo-FERNANDO was then reloaded with a blue staple load and I transected the base of the appendix. Once the specimen was completely detached, an endo-pouch was placed into the 12 mm port site and the specimen was removed through the endo-pouch. The appendiceal specimen will be sent to pathology for further review. I then copiously irrigated the right lower quadrant. Hemostasis was noted at both staple lines no other pathology was seen in this area. I then moved the camera to the suprapubic port to check our its port of entry. No iatrogenic injury or other pathology was noted in the upper abdomen. I then closed the 12 mm port site with a George code and 0 Vicryl suture under direct visualization. At this point, the abdomen was desufflated and all ports were removed. All port sites were closed with 4 Monocryl subcuticular suture. Dermabond was placed on all wounds. The patient tolerated the procedure well and was extubated in the operating room postop. He will be sent to the recovery room in stable condition. Estimated Blood Loss 5 Urine Output 300 Drains No Packing No Pathology yes Complications No immediate complications Condition stable Disposition PACU
[2020-08-04] MEDS: fentaNYL CITRATE INJ (*CRX) 100 MCG/2 ML VIAL 25 MCG IV PUSH ×2 (11:20→11:40)
--- NOTE | 2020-08-04 13:00 | PC.NURSE ---
Patient returned from surgery. Report received from JANESSA Gloria.
--- NOTE | 2020-08-14 14:06 | PM.DS ---
DS: Admitting Diagnosis Admitting Diagnosis Admitting Diagnosis: acute appendicitis DS: Discharge Diagnosis Discharge Diagnosis (1) Acute appendicitis: Code(s): K35.80 - Unspecified acute appendicitis Status: Acute Assessment and Plan: s/p lap appy, doing well, instructions for routine postop care, rx for po analgesia, colace, f/u 2 wks DS: Summary Hospital Course Reason for hospitalization: acute appendicitis Hospital Course: Pt is a 35 y/o F presenting to ED c/o RLQ abd pain. Pt had workup, including CT, c/w appendicitis. Pt admitted to surgical service and started on IV abx. Pt evaluated and urgent appendectomy was done, please see full op report for details. Postop, pt did well and was transferred back to floor. Pt was able to eric diet and pain well controlled on po analgesia. Pt to be dc'd home c routine postop instructions and po analgesia. Pt to f/u 2 wks. Status at Discharge Functional status at discharge: independent ambulation Overall status at discharge: patient is progressing back to baseline Time Spent with Patient Time attestation: Total time spent providing and/or coordinating discharge services: Time spent: Less than 30 minutes Exam Const: General: cooperative, comfortable and no acute distress Orientation/consciousness: patient oriented x3 Resp: Auscultation: clear to auscultation bilaterally Cardio: Rate: regular rate Rhythm: regular rhythm GI: Inspection: normal to inspection, distended and incision GI Palp: Yes Soft to palpation and Yes Tenderness to palpation present (GI) DS: Data Data Completed and Pending Completed studies during hospitalization: Pending at discharge 08/04/20 10:56 Surgical [PTH] Routine Discharge Plan Discharge Attending physician on discharge: Marlin Carreno Consulting providers: Lizandro Mart Discharging Clinician: Marlin Carreno Anticipated Discharge Date/Time: 08/04/20 16:00 Patient Disposition: Home, Self-Care Activity: other - see discharge instructions Diet: other - see discharge instructions Wound Care Instructions: follow printed instructions Discharge Instructions: DISCHARGE INSTRUCTION SHEET FOR HERNIA, GALLBLADDER AND APPENDIX SURGERIES DR. CARRENO PATIENT TO TAKE HOME 1. May shower in 24 hours, no soaking in bath x 2weeks. 2. Call office for: Wound increasingly painful or bleeding Vomiting Fever of greater than 101 degrees 3. If no bowel movement for three days, take 1 oz. (30 ml) Milk of Magnesia or MiraLax 17g 1 to 2 times daily. 4. No heavy lifting > 10-15 pounds x 6 weeks for hernia repairs and 2 weeks for laparoscopic cholecystectomy or appendectomy. 5. No driving for 3 days or while taking narcotic pain medications. 6. Ice to surgical site for 48 hours (30 min on, then 30 min off). 7. Up walking 10-30 minutes three times per day. 8. Resume previous home medications. 9. Follow-up 10-14 days in office for wound check or as previously scheduled. ([id number]) 10. Oral pain medications prescription to be sent to pharmacy. Take Tylenol 500mg every 6 hours and Ibuprofen 600mg every 6 hours for the first 2 days, then as needed. 11. NUTRITION: Start out by drinking fluids and increase your diet as tolerated. If you experience nausea, try dry toast, crackers, and 7-UP. If nausea or vomiting persists, contact your surgeon?s office. 12. Gallbladders-Low Fat Diet for 2 weeks (send care note of low fat diet) 13. Inguinal Hernias-wear scrotal support for 48 hours 14. Abdominal Hernias-if sent home with abdominal binder, wear for the first 2 weeks (may remove to shower or at night to sleep).
== END 2020-08-04 18:04 | disposition home or self-care (01) ==
LOC: ANHED 21:33 → ANH2MED 08-04 00:03
PROVIDERS: Admitting Provider Surgery; Emergency Provider Emergency Medicine; PCP Family Medicine; Visit Provider Surgery
PROC: 0DTJ4ZZ Resection of Appendix, Percutaneous Endoscopic Approach (ICD-10-PCS; CPT 44970; principal; 2020-08-04 10:30)
DX: K36 Other appendicitis (principal)
CPT/HCPCS: 44970; 36415; 74177; 80053; 81001; 81025; 83690; 85025; 88304; 96365; 96367; 96374; 96375; 96376; 99285; A9270; G0378; J0131; J0330; J1100; J1885; J2250; J2270; J2405; J2543; J2704; J3010; J7030; J7120; Q9967

== ENCOUNTER 2021-08-16 18:02 | Emergency (ER) | payer OTHER, SELFPAY ==
--- NOTE | 2021-08-16 18:04 | ED.URI ---
HPI - URI/Sore Throat General Chief Complaint: Upper Respiratory Infection Stated Complaint: Sore Throat Time Seen by Provider: 08/16/21 18:24 Source: patient and RN notes reviewed Mode of arrival: ambulatory Limitations: no limitations History of Present Illness HPI Narrative: 36-year-old female presents with concern for sore throat. She reports also right ear pain. She reports last weekend she began having some mild nasal congestion and rhinorrhea. Reports it was intermittent throughout the week and she was taking antihistamine. Reports she woke up this morning with worsening sore throat and ear pain. She thought she might have seen a white spot on her tonsil. She denies fever, body aches, chills, sweats, cough. MD elicited complaint: sore throat and rhinorrhea Related Data Home Medications Medication Instructions Recorded Confirmed levonorgestrel 20 mcg/24 hours (7 1 device intrauterine ONCE 08/13/20 09/24/20 yrs) 52 mg intrauterine device (Mirena) Allergies Allergy/AdvReac Type Severity Reaction Status Date / Time No Known Allergies Allergy Verified 09/24/20 10:22 Review of Systems Review of Systems: CONSTITUTIONAL: Denies malaise, chills, sweats, or fever. EYES: Denies visual changes, redness, or discharge. ENT: Reports rhinorrhea, congestion. Denies sinus pain. Reports otalgia and sore throat. CARDIOVASCULAR: Denies chest pain, palpitations, or edema. RESPIRATORY: Denies cough. Denies dyspnea. GASTROINTESTINAL: Denies abdominal pain, nausea, vomiting, diarrhea SKIN: Denies rash or itching. MUSCULOSKELETAL: Denies myalgia. NEUROLOGIC: Denies headache. All systems reviewed & are unremarkable except as noted in HPI and below PMFSH Past Medical History Medical History Seasonal allergies Vaginal delivery 10/21/18 Full term male 7lbs 12oz Surgical History Surgical History History of laparoscopic appendectomy 08/04/20 No pertinent past surgical history S/P cholecystectomy Family History Family History Sibling Family history of diabetes mellitus in first degree relative Mother Family history of diabetes mellitus in first degree relative Hypertension Hyperlipidemia Father Hypertension Social History Social History Smoking status: Never smoker Alcohol intake: unknown Substance use: unknown Substance use type: does not use Gender identity (if verbalized by the patient): Female Spiritual care concerns: No Comments At time of signature, agree with nursing past medical, surgical, social and family history. There is no relevant family history pertinent to the presenting complaint Exam Narrative: GENERAL: Well-appearing, well-nourished, and in no acute distress. HEAD: Normocephalic EYES: PERRLA, conjunctivae clear ENT: Nares clear, clear discharge. Mucous membranes moist. TM pearly cohen with sharp light reflex bilaterally; no tragal tenderness. Right oropharynx mildly erythematous without lesions. Tonsils not enlarged and without exudate, no drooling, no hoarseness, no trismus, uvula midline. NECK: Supple. No lymphadenopathy CHEST: Clear to auscultation, breath sounds equal. No wheezing, rhonchi, rales, or stridor. No respiratory distress, speaks in full sentences. HEART: Regular rate and rhythm. No murmur heard. SKIN: Warm, dry, no rash. NEURO: Alert and oriented x3. PSYCH: Normal mood and affect Course Course Emergency Course: Patient is aware of diagnosis, understands and agrees to treatment plan. Anticipatory guidance given. Patient agrees to follow-up as directed and is aware of reasons to seek care at the emergency department. Portions of this record may have been created with voice recognition software Level of Care: Express Care Vi
[2021-08-16 18:12] VITALS: BP 124/77; PULSE 97; RESP 16; TEMP 37.4; O2SAT 100
== END 2021-08-16 18:42 | disposition home or self-care (01) ==
PROVIDERS: Emergency Provider Nurse Practitioner; PCP Family Medicine
DX: J06.9 Acute upper respiratory infection, unspecified (principal)
CPT/HCPCS: 87081; 87880; 99213; G0463

== ENCOUNTER 2024-03-23 10:20 | Emergency (ER) | payer OTHER, SELFPAY ==
--- NOTE | ~2024-03-23 | XR_ITS ---
EXAMINATION: XR foot LT min 3V, XR ankle LT min 3V DATE: 03/23/2024 11:08 INDICATION: Left foot and ankle injury post fall TECHNIQUE: 1. Anteroposterior, mortise and oblique views of the left ankle were obtained. 2. Dorsoplantar, two oblique and lateral views of the left foot were obtained. COMPARISON: None. FINDINGS: 5 mm distraction of a small avulsion fracture involving the superolateral corner of the anterior proc ess of the calcaneus. There are additional small minimally displaced avulsion fractures at the dorsal margin of the neck of the talus and the proximal navicular. No other fracture identified. Mild polya rticular osteoarthritis at the calcaneocuboid, first metatarsophalangeal and multiple interphalangeal joints. Small plantar calcaneal spur. The soft tissues are unremarkable with no ankle joint effusion . IMPRESSION: 1. Small minimally distracted talonavicular capsular avulsion fractures at the dorsal margin of the t alus and navicula. 2. Mild distraction of a small avulsion fracture of the anterior process of the calcaneus likely invo lving the footplate of the bifurcate ligament. 3. 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 Reviewed, dictated and finalized at location A. LING INSPECTOR IMPRESSION: 1. Small minimally distracted talonavicular capsular avulsion fractures at the dorsal margin of the talus and navicula. 2. Mild distraction of a small avulsion fracture of the anterior process of the calcaneus likely involving the footplate of the bifurcate ligament. 3. 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
[2024-03-23 10:34] VITALS: BP 100/72; PULSE 77; RESP 20; TEMP 37.3; O2SAT 100
--- NOTE | 2024-03-23 10:34 | ED_ITS ---
HPI - Extremity Injury (Lower) General Chief Complaint: Extremity Injury, Lower Stated Complaint: FALL Time Seen by Provider: 03/23/24 11:20 Source: patient and RN notes reviewed Mode of arrival: ambulatory Limitations: no limitations History of Present Illness HPI Narrative: 39-year-old female presents with concern of for left foot ankle injury she reports on Thursday she slipped of the stairs and rolled her ankle. She reports bruising and swelling. She has been taking ibuprofen. She denies decreased sensation, strength, range of motion in the foot or ankle MD complaint: ankle injury Related Data Home Medications ?Medication ?Instructions ?Recorded ?Confirmed ?Last Taken ?Type levonorgestrel (Mirena) 1 device intrauterine ONCE 08/13/20 01/06/23 Unknown History Allergies Allergy/AdvReac Type Severity Reaction Status Date / Time No Known Allergies Allergy Verified 03/23/24 10:39 Review of Systems Review of Systems: CONSTITUTIONAL: Denies malaise, chills, sweats, or fever. SKIN: Denies rash or itching, open skin, laceration, abrasion, redness, warmth MUSCULOSKELETAL: Reports left foot and ankle pain, swelling, bruising NEUROLOGIC: Denies numbness, weakness All systems reviewed & are unremarkable except as noted in HPI and below PMFSH Past Medical History Medical History Seasonal allergies Vaginal delivery 10/21/18 Full term male 7lbs 12oz Surgical History Surgical History History of laparoscopic appendectomy 08/04/20 No pertinent past surgical history S/P cholecystectomy Family History Family History Sibling Family history of diabetes mellitus in first degree relative Mother Family history of diabetes mellitus in first degree relative Hypertension Hyperlipidemia Father Hypertension Social History Social History Smoking status: Never smoker Alcohol intake: unknown Substance use: unknown Substance use type: does not use Living arrangements: with family Gender identity (if verbalized by the patient): Female Sexual Orientation (if Verbalized by the Patient): Straight or Heterosexual Spiritual care concerns: No Comments At time of signature, agree with nursing past medical, surgical, social and family history. There is no relevant family history pertinent to the presenting complaint Exam Narrative: GENERAL: Well-appearing, well-nourished, and in no acute distress. HEAD: Normocephalic, atraumatic. EYES: PERRLA, conjunctivae clear NECK: Supple. CHEST: Speaks in full sentences. No respiratory distress. HEART: Regular rate and rhythm. Normal and equal peripheral pulses. EXTREMITIES: Left ankle, foot, digits have grossly normal strength and sensation, grossly normal range of motion. Mild edema and ecchymosis. Normal sensation with sensitivity to light touch and pain. No point tenderness. No open wounds, no skin tenting, no devitalized tissue or atrophy, no trophic changes, no obvious deformity, alignment normal, nearby joints and structures intact. Distal pulses palpable and equal bilaterally, skin warm, dry, pink. Capillary refill less than 3 seconds. SKIN: Warm, dry, no rash. NEURO: Alert and oriented x3. PSYCH: Normal mood and affect Course Course Emergency Course: Patient is aware of diagnosis, understands and agrees to treatment plan. Anticipatory guidance given. Patient agrees to follow-up as directed and is aware of reasons to seek care at the emergency department. Portions of this record may have been created with voice recognition software Level of Care: Express Care Visit Vital Signs Vital signs: Reviewed. MDM - Extremity Injury (Lower) MDM Narrative Medical decision making narrative: Patients injury and pain is consistent with musculoskeletal etiology. No signs of neurological or vascular compromise on exam. Compartments and tissues are soft without signs of compartment syndrome. Pain is felt appropriate for further evaluation on an outpatient basis. Imaging Data Radiologist's impression: INDICATION: Left foot and ankle injury post fall TECHNIQUE: 1. Anteroposterior, mortise and oblique views of the left ankle were obtained. 2. Dorsoplantar, two oblique and lateral views of the left foot were obtained. COMPARISON: None. FINDINGS: 5 mm distraction of a small avulsion fracture involving the superolateral corner of the anterior process of the calcaneus. There are additional small minimally displaced avulsion fractures at the dorsal margin of the neck of the talus and the proximal navicular. No other fracture identified. Mild polyarticular osteoarthritis at the calcaneocuboid, first metatarsophalangeal and multiple interphalangeal joints. Small plantar calcaneal spur. The soft tissues are unremarkable with no ankle joint effusion. IMPRESSION: 1. Small minimally distracted talonavicular capsular avulsion fractures at the dorsal margin of the talus and navicula. 2. Mild distraction of a small avulsion fracture of the anterior process of the calcaneus likely involving the footplate of the bifurcate ligament. 3. 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 Critical Care Time Critical Care Time Critical Care Time: No Discharge Plan Discharge Clinical Impression: Avulsion fracture of calcaneus, Avulsion fracture of left talus, Avulsion fracture of navicular bone of left foot Patient Disposition: Home, Self-Care Condition: Stable Instructions: Ankle Fracture (ED) Additional Instructions: Please rest, ice and elevate the affected extremity. Please take Motrin 600mg every 8 hours, as needed, for pain (take with food). Follow up with Orthopedic Surgery in 1-2 days for further evaluation - please call for an appointment. Keep orthopedic shoe on during weight-bearing, wear Logan wrap for swelling. . Use crutches to avoid bearing weight on your left lower extremity. Please go to ER immediately for increased pain, tingling/numbness, swelling, redness, and fever Patient Language: Upper Sorbian Prescriptions: No Action Mirena 20 mcg/24 hours (6 yrs) 52 mg intrauterine device 1 device intrauterine ONCE Rx Instructions: as a single dose Follow-up/Referrals: Luis Gu MD [Primary Care Provider] - Balbir Alvares MD [Physician] - Time of Disposition: 11:29
== END 2024-03-23 11:40 | disposition home or self-care (01) ==
PROVIDERS: Emergency Provider Nurse Practitioner; PCP Family Medicine
DX: S92.022A Displaced fracture of anterior process of left calcaneus, initial encounter for closed fracture (principal); S92.152A Displaced avulsion fracture (chip fracture) of left talus, initial encounter for closed fracture; S92.252A Displaced fracture of navicular [scaphoid] of left foot, initial encounter for closed fracture; W10.9XXA Fall (on) (from) unspecified stairs and steps, initial encounter
CPT/HCPCS: 73610; 73630; 99214; G0463